=== PATIENT | male | born 1960 | race Caucasian/White ===

== ENCOUNTER → 2018-01-23 16:19 | Outpatient (CLI) | payer OTHER, SELFPAY ==
--- NOTE | 2018-01-23 16:29 | XR_ITS ---
XR ankle RT min 3V HISTORY: Right ankle pain ITS.REASON: ARTHRITIS OF RIGHT ANKLE ORDERING PHYSICIAN: Sukhwinder Falk MD PATIENT AGE: 57 years Comparison: None FINDINGS: No fracture or dislocation. No lytic or blastic change. There is normal mineralization.. There is a small bone fragment between the lateral malleolus and lateral border of the talus probably is an old avulsion chip fracture. There is mild diffuse soft tissue swelling of the ankle. There is a small spur of the calcaneus at insertion of Achilles tendon. IMPRESSION: Minimal and likely posttraumatic change right ankle
== END ==
PROVIDERS: PCP Internal Medicine Adolescent Medicine; Visit Provider Internal Medicine Adolescent Medicine
DX: M19.071 Primary osteoarthritis, right ankle and foot (principal)
CPT/HCPCS: 73610

== ENCOUNTER → 2019-01-19 13:21 | Outpatient (CLI) | payer OTHER, SELFPAY ==
[2019-01-19 13:49] LABS: Blood Urea Nitrogen 15 mg/dL (7-18); Creatinine,Serum 1.05 mg/dL (0.70-1.30); Estimated Glomerular Filt Rate 73 ml/min (>60); GFR (African American) 88 ML/MIN (>60)
--- NOTE | 2019-01-19 15:47 | CT_ITS ---
PROCEDURE: CT ABDOMEN PELVIS WO/W CON CLINICAL INDICATION: ABDOMINAL PAIN AND BLOATING COMPARISON: [facility] CT CHEST W/O CONTRAST from 08/16/2015 TECHNIQUE: IV Contrast: 75ML OPTIRAY 350 Oral Contrast 20ml Gastroview Axial images obtained with sagittal and coronal reformats. All CT scans at the facility use one or more dose reduction, viz: automated exposure control, ma/kV adjustment per patient size (including targeted exams where dose is matched to indication, i.e. head), or iterative reconstruction technique. FINDINGS: No acute finding in the lung bases. Calcified granuloma is present in the right lung base posteriorly and medially. There is a 5 mm hypodense lesion in the right hepatic lobe posteriorly too small to categorize. The liver is otherwise unremarkable. There is some heterogeneous density in the gallbladder along with some calcification consistent with gallstones with possible sludge. Ultrasound may confirm. The spleen, adrenal glands, pancreas and left kidney have an unremarkable appearance. There is a nonobstructing 8 mm stone in the mid polar region of the right kidney. No hydronephrosis. No ureteral calculi. There is a small umbilical hernia containing fat. No evidence of appendicitis or diverticulitis. No pelvic mass abnormal fluid collection or focal inflammatory change of the pelvis. There is some stranding of the anterior abdominal wall fat just deep to the abdominal wall 8 cm superior to the umbilicus which may represent postsurgical changes from prior hernia repair. There is no evidence of recurrence hernia at this location. There are mild degenerative changes of the lumbar spine with mild lumbar scoliosis convex right. IMPRESSION: 1. Cholelithiasis and possible gallbladder sludge. Gallbladder ultrasound may be of further value. 2. Right nephrolithiasis. Or Dictated by: Daniel Garcia MD 01/19/2019 17:08 Electronically signed by Daniel Garcia MD in [place] 01/19/2019 17:08
== END ==
PROVIDERS: PCP Internal Medicine Adolescent Medicine; Visit Provider Internal Medicine Adolescent Medicine
DX: R10.84 Generalized abdominal pain (principal); R14.0 Abdominal distension (gaseous)
CPT/HCPCS: 36415; 74178; 82565; 84520; Q9967

== ENCOUNTER → 2019-01-22 08:07 | Outpatient (CLI) | payer OTHER, SELFPAY ==
--- NOTE | 2019-01-22 08:11 | US_ITS ---
PROCEDURE: US ABDOMEN LIMITED CLINICAL INDICATION: ABD BLOATING,ABD PAIN COMPARISON: No exams were available for comparison FINDINGS: PANCREAS: Unremarkable. No obvious mass or abnormal fluid collection. No ductal dilatation LIVER: No focal liver lesions demonstrated. Homogeneous echogenicity. No intrahepatic biliary ductal dilatation evident. There is appropriate direction of blood flow within a non dilated portal vein RIGHT KIDNEY: Unremarkable. Normal size and echogenicity. No hydronephrosis GALLBLADDER: There are multiple stones within the gallbladder. No gallbladder wall thickening, pericholecystic fluid, or biliary dilatation is evident. Common bile duct is normal at 4 mm. IMPRESSION: Cholelithiasis Dictated by: Daniel Garcia MD 01/22/2019 16:27 Electronically signed by Daniel Garcia MD in [facility] 01/22/2019 16:27
== END ==
PROVIDERS: PCP Internal Medicine Adolescent Medicine; Visit Provider Internal Medicine Adolescent Medicine
DX: R14.0 Abdominal distension (gaseous) (principal); R10.84 Generalized abdominal pain
CPT/HCPCS: 76705

== ENCOUNTER → 2019-02-01 13:19 | Outpatient (CLI) | payer OTHER, SELFPAY ==
--- NOTE | 2019-02-01 13:35 | ECG_ITS ---
APPROVED REPORT Exam: Resting ECG HR:66 bpm ECG Measurements Heart Rate 66 AXES WY 166 P 22 QRSd 76 QRS 66 QT 386 T 33 QTc 404 <Conclusion> Normal sinus rhythm Normal ECG Electronically signed by : Collin Walton, 02/01/2019 15:57:53
[2019-02-01 13:43] LABS: Basophils # 0.1 K/mm3 (0-0.2); Basophils % 0.8 % (0.1-2.0); Eosinophils # 0.2 K/mm3 (0.0-0.4); Eosinophils % 2.9 % (0.1-12.0); Hematocrit 46.9 % (42.0-52.0); Hemoglobin 14.9 g/dL (14.1-18.0); Lymphocytes # 1.6 K/mm3 (0.7-4.5); Lymphocytes % 25.6 % (10-50); Mean Corpuscular HGB Conc 31.7 g/dL (31.8-35.4); Mean Corpuscular Hemoglobin 29.2 pg (27.0-31.2); Mean Corpuscular Volume 91.9 fl (80-94); Mean Platelet Volume 7.3 fl (7.4-10.4); Monocytes # 0.3 K/mm3 (0.1-1.0); Monocytes % 4.8 % (1.7-9.3); Neutrophils # 4.1 K/mm3 (1.8-7.8); Platelet Count 304 K/mm3 (142-424); Red Cell Distribution Width 13.9 % (11.5-17.5); White Blood Count 6.2 K/mm3 (4.8-10.8)
[2019-02-01 15:32] LABS: Alanine Aminotransferase 26 U/L (12-78); Albumin/Globulin Ratio 1.1 (1.1-1.8); Alkaline Phosphatase 68 U/L (46-116); Anion Gap 11.7 mEq/L (5-15); Aspartate Amino Transferase 13 U/L (15-37); Bilirubin,Total 0.3 mg/dL (0.2-1.0); Blood Urea Nitrogen 13 mg/dL (7-18); Calcium 9.3 mg/dL (8.5-10.1); Carbon Dioxide 31 mmol/L (21.0-32.0); Chloride 104 mmol/L (98-107); Creatinine,Serum 0.87 mg/dL (0.70-1.30); Estimated Glomerular Filt Rate 90 ml/min (>60); GFR (African American) 109 ML/MIN (>60); Globulin 3.6 gm/dl (1.3-3.2); Glucose 76 mg/dL (74-106); Potassium 4.7 mmoL/L (3.5-5.1); Sodium 142 mmol/L (136-145); Total Protein,Serum 7.6 gm/dL (6.4-8.2)
== END ==
PROVIDERS: Visit Provider Surgery
DX: K82.9 Disease of gallbladder, unspecified (principal); Z01.818 Encounter for other preprocedural examination
CPT/HCPCS: 36415; 80053; 85025; 93005

== ENCOUNTER → 2020-09-12 13:06 | Outpatient (CLI) | payer OTHER, SELFPAY | PROVIDERS: PCP Internal Medicine Adolescent Medicine; Visit Provider Internal Medicine Adolescent Medicine | DX: G47.33 Obstructive sleep apnea (adult) (pediatric) (principal); R40.0 Somnolence; R06.83 Snoring; E66.9 Obesity, unspecified | CPT/HCPCS: 95806 ==

== ENCOUNTER → 2021-03-29 08:01 | Outpatient (CLI) | payer OTHER, SELFPAY ==
[2021-03-29 08:04] LABS: Adenovirus,PCR Not Detected (NotDetected); Bordetella Pertussis Not Detected (NotDetected); Chlamydophila Pneumoniae, PCR Not Detected (NotDetected); Coronavirus 229E Not Detected (NotDetected); Coronavirus NL63 Not Detected (NotDetected); Coronavirus OC43 Not Detected (NotDetected); Coronovirus HKU1,PCR Not Detected (NotDetected); Human Metapneumovirus Not Detected (NotDetected); Influenza A, PCR Not Detected (NotDetected); Influenza AH1, 2009 Not Detected (NotDetected); Influenza AH1, PCR Not Detected (NotDetected); Influenza AH3,PCR Not Detected (NotDetected); Influenza B, PCR Not Detected (NotDetected); Mycoplasma Pneumoniae, PCR Not Detected (NotDetected); Parainfluenza 1, PCR Not Detected (NotDetected); Parainfluenza 2, PCR Not Detected (NotDetected); Parainfluenza 4, PCR Not Detected (NotDetected); Respiratory Syncytial Virus Not Detected (NotDetected); Rhinovirus/Enterovirus Not Detected (NotDetected)
[2021-03-29 18:43] LABS: Parainfluenza 3, PCR Detected (NotDetected)
== END ==
PROVIDERS: Visit Provider Nurse Practitioner Family
DX: Z20.822 Contact with and (suspected) exposure to COVID-19 (principal); R05.9 Cough, unspecified; J11.1 Influenza due to unidentified influenza virus with other respiratory manifestations
CPT/HCPCS: 87486; 87581; 87632; 87798

== ENCOUNTER → 2021-09-22 11:19 | Outpatient (CLI) | payer OTHER, SELFPAY | PROVIDERS: PCP Internal Medicine Adolescent Medicine; Visit Provider Surgery | DX: Z01.812 Encounter for preprocedural laboratory examination (principal); Z20.822 Contact with and (suspected) exposure to COVID-19; Z12.11 Encounter for screening for malignant neoplasm of colon | CPT/HCPCS: C9803; U0003; U0005 ==

== ENCOUNTER 2021-09-25 06:33 | Day surgery (SDC) | payer OTHER, SELFPAY ==
[2021-09-20 11:52] VITALS: BMI 30.9
[2021-09-25 06:48] VITALS: BP 132/77; PULSE 74; RESP 18; TEMP 36.7; O2SAT 95
--- NOTE | 2021-09-25 07:07 | HMH.ANESCL ---
[facility] Anesthesia Checklist - Patient Identification Patient Identification: Arm Band - Structural Data Admitted From: Home Planned Operative Procedure/s: Colonoscopy Consent for Planned Operative Procedure(s) Verified: Yes - NPO Status Verified Time NPO: 03:00 (Prep) - Additional verifications Anesthesia Reactions: Yes (NAUSEA / VOMITING) Hx Blood Transfusions: No Blood Transfusion Reaction: No - Airway Assessment C-Spine Mobility Assessed: Yes TMJ Mobility Assessed: Yes Dentition: Good Dentition - Neurological Assessment Level of Consciousness: Awake Hx Seizures: No Numbness or tingling in extremities: No - Anesthesia Plan Anesthesia Risk discussed: Yes Anesthesia Plan: Verified ASA Class: II Anesthesia Type: MAC [facility] History I have reviewed the patient's past medical history: Yes Medical History: Reports:: Anxiety, Asthma, Depression, Gastroesophageal Reflux Disease(GERD) Denies:: Cancer, Diabetes Mellitus Type 1, Diabetes Mellitus Type 2, Internal Pacemaker, Lung Disease, MRSA, Seizures *Have you ever received a pneumonia vaccine?: No *Have you received a flu vaccine this season?: No Other Medical History: Denies: Blood Transfusion Reaction Anesthesia experience/problems:: None Other Surgeries: Yes: Cholecystectomy, Colonoscopy, Hernia Repair, Other (ACDF). No: Pacemaker Amputation: No Fractures: No - *Social History Last grade of school completed: High school graduate Smoking Status: Former smoker #Yrs smoked (if former smoker): 1 Smoking End Date: 40 YEARS AGO Alcohol Intake: never Substance Use Type: denies use *Occupational Status:: employed Housing: house Household Members: spouse *Travel in the last 8 weeks: None - Psychiatric History Pschychiatric History:: Reports:: Anxiety, Depression Family Hx:: Cancer
[2021-09-25 08:00] VITALS: O2SAT 95
[2021-09-25 08:48] VITALS: BP 123/77; PULSE 75; RESP 18; TEMP 36.8; O2SAT 94
--- NOTE | 2021-09-25 08:51 | HMH.SCOPE ---
- Procedure: Date: 09/25/21 Patient Date of :: 1960 Procedure Performed:: Colonoscopy with polypectomy by means other than snare Indications:: History of colon polyps. Tubular adenoma of the hepatic flexure noted in May 2018. Colonoscopy in 2019 limited by fairly severe spasticity. Performing Provider:: Nelson Burr MD Referring Provider:: . Sedation:: Monitored anesthesia care Procedure:: After informed consent was obtained the patient was taken to the endoscopy suite. Sedation ensued after the patient was transferred to the left lateral decubitus position. Pulse, blood pressure, and oxygen saturation were monitored throughout the procedure. Digital rectal exam revealed no significant abnormality. The colonoscope was placed in position. The entire colon was evaluated. The colonoscope was carefully removed and the patient was transferred to recovery in stable condition. Please see findings and specimens below for detail. Findings:: Bowel preparation fair Fairly significant sigmoid spasticity/lack of relaxation Mild hemorrhoidal cushions (unchanged) Mild scattered sigmoid diverticulosis (unchanged) Small sessile polyp at 15 cm Specimens:: Polyp at 15 cm (cold biopsy forceps) Recommendations:: Timing of repeat colonoscopy is pending pathology but will likely be between 3-5 years secondary to history of polyps and spasticity. Complications:: No immediate Estimated blood obtained (mL): 1
[2021-09-25 08:58] VITALS: BP 118/81; PULSE 61; RESP 18; TEMP 36.8; O2SAT 94
[2021-09-25 09:08] VITALS: BP 130/83; PULSE 68; RESP 18; TEMP 36.8; O2SAT 97
[2021-09-25 09:18] VITALS: BP 119/87; PULSE 61; RESP 18; TEMP 36.8; O2SAT 98
== END 2021-09-25 09:18 | disposition home or self-care (01) ==
LOC: OUTP 06:34
PROVIDERS: PCP Internal Medicine Adolescent Medicine; Visit Provider Surgery
PROC: 0DJD8ZZ Inspection of Lower Intestinal Tract, Via Natural or Artificial Opening Endoscopic (ICD-10-PCS; CPT 45378; principal; 2021-09-25 07:30)
DX: Z12.11 Encounter for screening for malignant neoplasm of colon (principal); K63.5 Polyp of colon; K21.9 Gastro-esophageal reflux disease without esophagitis; J45.909 Unspecified asthma, uncomplicated; F32.A Depression, unspecified; F41.9 Anxiety disorder, unspecified
CPT/HCPCS: 45380; J2704